=== PATIENT | female | born 1995 | race Caucasian/White ===

== ENCOUNTER 2017-03-18 14:50 | Emergency (ER) | payer SELFPAY ==
[~2017-03-18] VITALS: Wt 105.7 kg
[2017-03-18] MEDS ORDERED: AUGMENTIN 875875 MG PO (15:37)
[2017-03-18] MEDS ORDERED: ZOFRAN ODT4 MG SL (15:37)
[2017-03-18] MEDS ORDERED: AMOXICILLIN500 M3 PO (15:53)
== END 2017-03-18 16:19 | disposition home or self-care (01) ==
LOC: ED 14:50
DX: J01.10 Acute frontal sinusitis, unspecified (principal); R11.2 Nausea with vomiting, unspecified; F17.200 Nicotine dependence, unspecified, uncomplicated